=== PATIENT | male | born 2000 | race Hispanic/Latino ===

== ENCOUNTER 2022-05-05 13:09 | Emergency (ER) | payer SELFPAY ==
[2022-05-05 18:13] LABS: Basophils % (Auto) 0.5 % (0.0-1.8); Eosinophils # (Auto) 0.3 K/mm3 (0.0-0.4); Eosinophils % (Auto) 3.9 % (0.0-4.3); Hematocrit 45.2 % (30.3-42.9); Hemoglobin 15.5 gm/dl (10.1-14.3); Lymphocytes # (Auto) 2.3 K/mm3 (1.2-5.4); Lymphocytes % (Auto) 26.3 % (13.4-35.0); Mean Corpuscular HGB Conc 34 % (30-34); Mean Corpuscular Volume 90 fl (79-97); Monocytes # (Auto) 0.7 K/mm3 (0.0-0.8); Monocytes % (Auto) 7.8 % (0.0-7.3); Platelet Count 309 K/mm3 (140-440); Red Blood Count 5.04 M/mm3 (3.65-5.03); Red Cell Distribution Width 12.8 % (13.2-15.2)
[2022-05-05 18:36] LABS: Alanine Aminotransferase 15 units/L (7-56); Albumin 5.4 g/dL (3.9-5); BUN/Creatinine Ratio 12; Blood Urea Nitrogen 11 mg/dL (7-17); Calcium 10.1 mg/dL (8.4-10.2); Hemolysis Index 7
--- NOTE | 2022-05-05 19:16 | Emergency Department Report ---
ED General Adult HPI - General Chief complaint: Skin/Abscess/Foreign Body Stated complaint: LYMPH NODES 2 YEARS Time Seen by Provider: 05/05/22 18:59 Source: patient Mode of arrival: Ambulatory Limitations: No Limitations - History of Present Illness Initial comments: 22 Y M with no PMH report to ER with C/O lymph nodes x 2 years in throat. Patient report no fever, no pain with eating. No other symptoms reported. Severity scale (0 -10): 5 - Related Data Allergies Allergy/AdvReac Type Severity Reaction Status Date / Time Penicillins Allergy Unknown Verified 05/05/22 17:38 ED Review of Systems ROS: Stated complaint: LYMPH NODES 2 YEARS Other details as noted in HPI Comment: All other systems reviewed and negative Hematological/Lymphatic: swollen glands ED Past Medical Hx - Past Medical History Previous Medical History?: No ED Physical Exam - General Limitations: No Limitations General appearance: alert, in no apparent distress - Head Head exam: Present: atraumatic, normocephalic - Eye Eye exam: Present: normal appearance - ENT ENT exam: Present: mucous membranes moist, other (No neck swelling noted. no lymph swelling noted in neck area. ) - Neck Neck exam: Present: normal inspection - Respiratory Respiratory exam: Present: normal lung sounds bilaterally. Absent: respiratory distress - Cardiovascular Cardiovascular Exam: Present: regular rate, normal rhythm. Absent: systolic mu rmur, diastolic murmur, rubs, gallop - GI/Abdominal GI/Abdominal exam: Present: soft, normal bowel sounds - Rectal Rectal exam: Present: deferred - Extremities Exam Extremities exam: Present: normal inspection - Back Exam Back exam: Present: normal inspection - Neurological Exam Neurological exam: Present: alert, oriented X3 - Psychiatric Psychiatric exam: Present: normal affect, normal mood - Skin Skin exam: Present: warm, dry, intact, normal color. Absent: rash ED Course Vital Signs 05/05/22 05/05/22 17:32 20:24 Temperature 98.9 F Pulse Rate 75 72 Respiratory 14 Rate Blood Pressure 134/83 127/73 [Right] O2 Sat by Pulse 98 100 Oximetry ED Medical Decision Making - Lab Data Result diagrams: 05/05/22 18:02 05/05/22 18:02 - Medical Decision Making patient has no lymph nodes swelling in neck area. No acute clinical findings noted. cbc/cmp unremarkable no further work up is needed. Patient informed to follow up with PCP for annual PE. patient is stable for D/C home. Patient is agrees with plan and verbalized understanding. Vital Signs 05/05/22 05/05/22 17:32 20:24 Temperature 98.9 F Pulse Rate 75 72 Respiratory 14 Rate Blood Pressure 134/83 127/73 [Right] O2 Sat by Pulse 98 100 Oximetry Lab Results 05/05/22 05/05/22 Range/Units 18:02 18:02 WBC 8.8 (4.5-11.0) K/mm3 RBC 5.04 H (3.65-5.03) M/mm3 Hgb 15.5 H (10.1-14.3) gm/dl Hct 45.2 H (30.3-42.9) % MCV 90 (79-97) fl MCH 31 (28-32) pg MCHC 34 (30-34) % RDW 12.8 L (13.2-15.2) % Plt Count 309 (140-440) K/mm3 Lymph % (Auto) 26.3 (13.4-35.0) % Maverick % (Auto) 7.8 H (0.0-7.3) % Eos % (Auto) 3.9 (0.0-4.3) % Baso % (Auto) 0.5 (0.0-1.8) % Lymph # (Auto) 2.3 (1.2-5.4) K/mm3 Maverick # (Auto) 0.7 (0.0-0.8) K/mm3 Eos # (Auto) 0.3 (0.0-0.4) K/mm3 Baso # (Auto) 0.0 (0.0-0.1) K/mm3 Seg Neutrophils % 61.5 (40.0-70.0) % Seg Neutrophils # 5.4 (1.8-7.7) K/mm3 Sodium 142 (137-145) mmol/L Potassium 4.4 (3.6-5.0) mmol/L Chloride 102.5 (98-107) mmol/L Carbon Dioxide 28 (22-30) mmol/L Anion Gap 16 mmol/L BUN 11 (7-17) mg/dL Creatinine 0.9 (0.6-1.2) mg/dL Estimated GFR > 60 ml/min BUN/Creatinine Ratio 12 % Glucose 106 H (65-100) mg/dL Calcium 10.1 (8.4-10.2) mg/dL Total Bilirubin 0.80 (0.1-1.2) mg/dL AST 35 (5-40) units/L ALT 15 (7-56) units/L Alkaline Phosphatase 59 (35-129) units/L Total Protein 7.8 (6.3-8.2) g/dL Albumin 5.4 H (3.9-5) g/dL Albumin/Globulin Ratio 2.3 % Critical care attestation.: If time is entered above; I have spent that time in minutes in the direct care of this critically ill patient, excluding procedure time. ED Disposition Clinical Impression: Encounter for medical screening examination Disposition: 01 HOME / SELF CARE / HOMELESS Is pt being admited?: No Condition: Stable Instructions: Medical Screening Exam Referrals: [facility] [Outside] - 3-5 Days
[2022-05-05 20:39] VITALS: BP 127/73
== END 2022-05-05 22:03 | disposition home or self-care (01) ==
LOC: ED 13:09
DX: Z00.00 Encounter for general adult medical examination without abnormal findings (principal); J02.9 Acute pharyngitis, unspecified; Z88.0 Allergy status to penicillin
CPT/HCPCS: 36415; 80053; 85025; 99283